=== PATIENT | male | born 1995 | race Caucasian/White ===

== ENCOUNTER 2016-12-27 13:54 | Emergency (ER) | payer OTHER ==
[2016-12-27] MEDS ORDERED: Ketorolac 60 MG/2 ML SDV IM ONE (14:18)
--- NOTE | 2016-12-27 14:22 | EDM.PDOC ---
ED HPI Skin/Rash - General Chief Complaint: Skin Complaint Stated Complaint: POSSIBLE FINGER ON LT HAND INFECTED Time Seen by Provider: 12/27/16 14:12 - History of Present Illness INITIAL COMMENTS - FREE TEXT/NARRATIVE: HISTORY AND PHYSICAL: History of present illness: The patient is a 21-year-old male who presents with pain and swelling to his left index finger after he believes he got a piece of copper wire stockinette while at work several days ago. He did initially he thought that there was some wire in there and would work its way out but he noticed increased swelling over the last 24-36 hours. He is right-hand dominant and is up-to-date on his tetanus shot according to his history. Patient denies any pain or swelling to the left hand or proximally and has not seen any streaking or red alvarado up his arm. He is able to flex and extend at the index finger and use it but it is very "tight" there's been no drainage from the area Review of systems: As per history of present illness and below otherwise all systems reviewed and negative. Past medical history: As per history of present illness and as reviewed below otherwise noncontributory. Surgical history: As per history of present illness and as reviewed below otherwise noncontributory. Social history: No reported history of drug or alcohol abuse. Family history: As per history of present illness and as reviewed below otherwise noncontributory. Physical exam: General: Well-developed well-nourished man who is nontoxic vital signs were reviewed by me HEENT: Atraumatic, normocephalic, negative for conjunctival pallor or scleral icterus, mucous membranes moist, throat clear, neck supple, nontender, trachea midline. Lungs: Clear to auscultation, breath sounds equal bilaterally, chest nontender. Heart: S1S2, regular rate and rhythm no overt murmurs Abdomen: Soft, nondistended, nontender. NABS Genitourinary: Deferred. Rectal: Deferred. Extremities: Atraumatic with no bony deformities and full range of motion of all extremities. At the left index finger there is a small scab-like area seen on the radial aspect of the DIPs area with gross soft tissue swelling and erythema of the entire digit to the base. There is no gross area of point fluctuance there is tenderness diffusely in the digit. There is warmth noted. Patient is able to flex and extend versus resistance in this digit. There is no streaking or swelling up into the hand area nor of the left upper extremity. Distal axillary adenopathy. The legs, negative for cords or calf pain. Neurovascular unremarkable. Neuro: Awake, alert, oriented. Cranial nerves II through XII unremarkable. Cerebellum unremarkable. Motor and sensory unremarkable throughout. Exam nonfocal. Diagnostics: X-ray left index finger Therapeutics: Toradol I discussed with the patient that we would treat the infection in the area as a cellulitis with antibiotics and that he would need to followup with our hand specialist. Impression: Cellulitis/puncture wound left index finger Definitive disposition and diagnosis as appropriate pending reevaluation and review of above. - Related Data Allergies Allergy/AdvReac Type Severity Reaction Status Date / Time No Known Allergies Allergy Verified 12/27/16 14:11 Home Meds: Ambulatory Orders Medication Instructions Recorded Confirmed Clindamycin Phosphate [Cleocin T] 1 applic TP DAILY 12/27/16 12/27/16 ED ROS GENERAL - Review of Systems Review Of Systems: ROS reveals no pertinent complaints other than HPI. ED EXAM, SKIN/RASH Exam: See Below (see dictation) Course - Vital Signs Last Recorded V/S: Last Vital Signs Temp 36.9 C 12/27/16 14:12 Pulse 78 12/27/16 14:12 Resp 16 12/27/16 14:12 BP 126/73 12/27/16 14:12 Pulse Ox 97 12/27/16 14:12 - Orders/Labs/Meds Orders: Active Orders 24 hr Category Date Time Status Fingers Second Digit Lt F1 [CR] Stat Exams 12/27/16 14:18 Taken Meds: Medications Discontinued Medications Generic Name Dose Route Start Last Admin Trade Name Freq PRN Reason Stop Dose Admin Ketorolac Tromethamine 60 mg 12/27/16 14:18 12/27/16 15:22 Toradol IM 12/27/16 14:19 60 mg ONETIME ONE Administration Departure - Departure Time of Disposition: 15:29 Disposition: Home, Self-Care 01 Condition: good Clinical Impression: Cellulitis Qualifiers: Site of cellulitis: extremity Site of cellulitis of extremity: finger Laterality: left Qualified Code(s): L03.012 - Cellulitis of left finger Puncture wound of finger Qualifiers: Encounter type: initial encounter Qualified Code(s): S61.239A - Puncture wound without foreign body of unspecified finger without damage to nail, initial encounter Referrals: PCP,None [Primary Care Provider] - Forms: ED Department Discharge Additional Instructions: The following information is given to patients seen in the emergency department who are being discharged to home. This information is to outline your options for follow-up care. We provide all patients seen in our emergency department with a follow-up referral. The need for follow-up, as well as the timing and circumstances, are variable depending upon the specifics of your emergency department visit. If you don't have a primary care physician on staff, we will provide you with a referral. We always advise you to contact your personal physician following an emergency department visit to inform them of the circumstance of the visit and for follow-up with them and/or the need for any referrals to a consulting specialist. The emergency department will also refer you to a specialist when appropriate. This referral assures that you have the opportunity for followup care with a specialist. All of these measure are taken in an effort to provide you with optimal care, which includes your followup. Under all circumstances we always encourage you to contact your private physician who remains a resource for coordinating your care. When calling for followup care, please make the office aware that this follow-up is from your recent emergency room visit. If for any reason you are refused follow-up, please contact the [facility] emergency department at and ask to speak to the emergency department charge nurse. [facility] Primary care- Internal Medicine and Family [facility] [address] [place] [id number] [facility] Specialty clinic-Plastic Surgery and Hand Surgery Professional Building [address] [place] [id number] Please call and contact our hand specialist Dr. Murray for further care and evaluation of your finger infection. Please take meds as directed and do not squeeze or manipulate the area. Return to ER as needed and as discussed - My Orders Last 24 Hours: My Active Orders 12/27/16 14:18 Fingers Second Digit Lt F1 [CR] Stat - Assessment/Plan Last 24 Hours: My Active Orders 12/27/16 14:18 Fingers Second Digit Lt F1 [CR] Stat
[2016-12-27 18:39] VITALS: BP 115/61
--- NOTE | 2016-12-29 16:43 | CR ---
EXAM DATE: 12/27/16 PATIENT'S AGE: 21 Patient: RAYA VALDES Facility: [place], [place] Site . Site : 1995 Study: XRay Extremity Left 2nd digit [id number]/[id number] 2:46:21 PM Ordering Physician: Romel Wills Final Report: INDICATION: Evaluate for a foreign body. TECHNIQUE: Three views of the left 2nd (index) finger. COMPARISON: None. IMPRESSION: There is diffuse soft tissue swelling throughout the index finger. No soft tissue gas or foreign body is identified. No osseous abnormality. Dictated by Darvin Gandhi MD @ 12/27/2016 3:20:05 PM Dictated by: Darvin Gandhi MD @ 12/27/2016 15:20:08 (Electronic Signature) Report Signed by Proxy. MIKO
== END 2016-12-27 15:57 | disposition home or self-care (01) ==
LOC: MW.ED 13:54
DX: L03.012 Cellulitis of left finger (principal); S61.231A Puncture wound without foreign body of left index finger without damage to nail, initial encounter; Z23 Encounter for immunization; X58.XXXA Exposure to other specified factors, initial encounter
CPT/HCPCS: 73140; 96372; 99283; J1885